=== PATIENT | female | born 1960 | race Caucasian/White ===

== ENCOUNTER → 2017-02-01 | Day surgery (SDC) | payer OTHER ==
[~2017-02-01] MED LIST: HYDR12.58 PO; IV RINGERS,LACTATED 1000ML 1,000 ML IV SCH; PANT40TA5 PO; PROPOFOL 40 ML IV ONE
[2017-02-01 10:31] VITALS: BP 106/61
--- NOTE | 2017-02-02 07:39 | HP ---
ADMIT DATE: 02/01/2017 REFERRING PHYSICIAN: Dr. Lara. HISTORY OF PRESENT ILLNESS: This is a 56-year-old female with past medical history significant for hypertension, longstanding heartburn with breakthrough symptoms. She has had increased reflux despite 40 mg daily of Protonix. She does avoid alcohol, nicotine and caffeine products at this time, no dysphagia, odynophagia or weight loss. No ____ melena and/or hematochezia. In addition, she requests colorectal screening, no family history of colon polyps or colon cancers noted and she has not undergone previous colonoscopy. She is otherwise without additional complaints. PAST MEDICAL HISTORY: Hypertension, gastroesophageal reflux disease. ALLERGIES: None. MEDICATIONS: Include hydrochlorothiazide and pantoprazole. FAMILY HISTORY: History of Crohn's with father and uncle, diabetes with father and uncle, hypertension with mother, DE with an uncle and maternal grandmother. PAST SURGICAL HISTORY: Status post tubal ligation. REVIEW OF SYSTEMS: Per records. SOCIAL HISTORY: She is a social drinker and a former smoker. PHYSICAL EXAMINATION: GENERAL: Reveals a well-nourished, well-developed female. VITAL SIGNS: Temp is 97.9, pulse 72, respiratory rate is 18. HEENT: Reveals a normocephalic, atraumatic head. Pupils and extraocular muscles not tested. Sclerae anicteric. NECK: Supple. LUNGS: Clear. CARDIOVASCULAR: Reveals S1, S2 without S3, S4 or appreciable murmur. ABDOMEN: Reveals a soft abdomen, normal bowel sounds, without appreciable hepatosplenomegaly. EXTREMITIES: Reveals no cyanosis, clubbing or edema. IMPRESSION: 1. Heartburn with breakthrough symptoms. Differential includes achalasia, malignancy, Ortega's, peptic stricture, gastroparesis. Therefore, recommend upper endoscopy with possible biopsies. 2. Colorectal screening, colonoscopy is warranted. Risks and benefits of the procedure have been discussed with the patient. She is willing to proceed at this time. I would like to thank Dr. Lara for allowing us to consult and participate in this patient's care. SHLOMO QUIÑONEZ MD DR: DELBERT/guero JOB#: [id number] / [id number]
--- NOTE | 2017-02-04 13:27 | PATHOLOGY ---
PATHOLOGY REPORT * * * * * * * * FINAL DIAGNOSIS: A. Esophageal biopsies, distal esophagus: - Segments of hyperplastic squamous esophageal mucosa consistent with reflux esophagitis. B. Colon biopsy, transverse colon polyp: - Tubular adenoma. C. Colon biopsy, sigmoid colon polyp: - Hyperplastic polyp. COMMENT: Sections of the distal esophageal biopsy reveal segments of focally tangentially oriented hyperplastic squamous esophageal mucosa. The findings are consistent with reflux esophagitis. There is no evidence of Ortega's change, dysplasia, or malignancy. Sections of the transverse colon biopsy reveal a tubular adenoma. Sections of the sigmoid colon biopsy reveal a hyperplastic polyp. There is no high-grade dysplasia or evidence of malignancy. (JPM:mgr; d/t: 02/04/17) REPORT ELECTRONICALLY SIGNED BY: Souleymane Ford M.D. DATE/TIME: 02/04/2017 13:26 * * * * * * * * GROSS PATHOLOGY: A. Received in formalin labeled "Benita Dinero and distal esophageal biopsies," are 4 segments of harrington soft tissue measuring 1.8 x 0.4 x 0.2 cm in aggregate dimensions and ranging from 0.4 to 0.9 cm in maximum dimension. The specimen is submitted entirely in cassette A1. B. Received in formalin labeled "Benita Dinero and transverse colon polyp," is a segment of harrington soft tissue measuring 0.3 cm in maximum dimension. The specimen is submitted entirely in cassette B1. C. Received in formalin labeled "Benita Dinero and sigmoid colon polyp," is a segment of harrington soft tissue measuring 0.3 cm in maximum dimension. The specimen is submitted entirely in cassette C1. (TTL; 02/01/2017) INITIAL CPT CODE(S): A; 49329 B; 95319 C; 52029 Professional services performed by [facility] at [address] [address] Technical services performed by [facility] at [address] [place] [address], [address], [place] [address]. SPECIMEN(S) RECEIVED: A.Distal esophageal biopsy B.Transverse colon polyp C.Sigmoid colon polyp CLINICAL HISTORY: Reflux, screening PATIENT: BENITA DINERO /AGE: 111/10/1960 (Age: 56) PATIENT #: [id number] ALT CASE #: SPECIMEN COLLECTION DATE: 02/01/2017 SPECIMEN RECEIVED DATE: 02/01/2017 [facility] - [id number] [address] - PHONE: [phone] * * * END OF REPORT * * *
== END | disposition home or self-care (01) ==
LOC: ENDOS 08:51
PROVIDERS: ATTEND Internal Medicine Gastroenterology
DX: Z12.11 Encounter for screening for malignant neoplasm of colon (principal); K64.0 First degree hemorrhoids; D12.3 Benign neoplasm of transverse colon; D12.5 Benign neoplasm of sigmoid colon; K21.0 Gastro-esophageal reflux disease with esophagitis; K29.50 Unspecified chronic gastritis without bleeding; I10 Essential (primary) hypertension; Z72.89 Other problems related to lifestyle; Z72.0 Tobacco use; Z98.51 Tubal ligation status
CPT/HCPCS: 43239; 45380; G0500; J2704; 88305

== ENCOUNTER → 2019-10-30 | Outpatient (CLI) | payer OTHER ==
[2017-02-01 10:31] VITALS: BP 106/61
[~2019-10-30] MED LIST changes: -IV RINGERS,LACTATED 1000ML 1,000 ML IV SCH; -PANT40TA5 PO; +PANT40TA77 PO; -PROPOFOL 40 ML IV ONE
--- NOTE | 2019-10-30 12:24 | RAD ---
MR#: [id number] Date of Study: 10/30/2019 Ordering Physician: FELECIA ACOSTA, Referring Physician: MARCUS CANDELARIA Tech: PRETTY Benson ARRT (R) (N) APPROVED REPORT Test Type: Exercise Stress Nurse/Tech: Matilde MITCHELL Test Indications: CP radiating down left arm Cardiac History: HTN, family hx, See EMR Medications: ASA, See EMR Medical History: See EMR Resting ECG: SB Resting Heart Rate: 50 bpm Resting Blood Pressure: 148/74mmHg Pretest Chest Pain: No chest pain Nurse/Tech Notes Lungs CTA, Heart tones regular Consent: The procedure was explained to the patient in lay terms. Informed consent was witnessed. Tima eout was entered into [facility]. History and Stress Test performed by RT Kenny (R) (N) Stress Symptoms Dizziness, Dyspnea, Fatigue. No chest pain. POST EXERCISE Reason for Termination: Reached target heart rate Target HR: Yes Max HR: 148 bpm 108% of Maximum Predicted HR: 136 bpm Exercise duration: 7:24 min:sec, 3 Stage Exercise capacity: 10.0METs Max Blood Pressure: 174/79mmHg Blood Pressure response to exercise: Normal blood pressure response during stress. Heart Rate response to exercise: WNL Chest Pain: No. Arrhythmia: No. ST Change: No. INTERPRETATION Stress EKG Conclusion: Nondiagnostic EKG due to motion artifact. Peak stress EKG is grossly unremarkable. Imaging Protocol IMAGE PROTOCOL: Rest Tc-99m/stress Tc-99m 1 day Rest: Stress: Viability: Radiopharm.Tc99m JeqowmjseMc16m Sestamibi Ipxt04qDo 33mCi Inj-Img Iehg94dyi. 60min. Rest Admin Site:IV - Right AntecubitalAdministrator:PRETTY Benson, KARINA (R)(N) Stress Admin Site: IV - Right AntecubitalAdministrator: RT Kenny (Jaret)(N) STRESS DATA End Diast. Vol.61.0mlAv. Heart Rate71.0bpm End Syst. Vol.11.0mlCO Index BSA0.0L/min Myocardial Ipxy413.0gEject. Mwugnlbx19.0% Stress Rates Pk. Fill Rate4.06EDV/secLVtime Pk. Fill 253.33msec Pk. Empty Rate5.43ESV/secLVtime Pk. Ykuse627.37msec 1/3 Pk. Fill1.47EDV/sec Stress Scores Regional WT0.00Summed WT2.00 Regional WM0.00Summed WM0.00 The rest and stress images show normal perfusion, normal contraction and thickening. LV Perf. Quant 17 Seg. SSS0.00 17 Seg. SRS0.00 17 Seg. SDS0.00 Stress Defect Extent (% LAD)0.00Rest Defect Extent (% LAD)0.00Rev. Defect Extent (% LAD)0.00 Stress Defect Extent (% LCX) 0.00Rest Defect Extent (% LCX)0.00Rev. Defect Extent (% LCX)0.00 Stress Defect Extent (% RCA)0.00Rest Defect Extent (% RCA)0.00Rev. Defect Extent (% RCA)0.00 Stress Defect Extent (% SARAH)0.00Rest Defect Extent (% SARAH)0.00Rev. Defect Extent (% SARAH)0.00 Other Information Quality:Fair Risk Assessment: Low Risk Conclusion 1. No evidence of EKG changes with stress testing. (limited evaluation due to motion artifact) 2. Normal perfusion at stress/rest. 3. Low risk study. 4. EF > 60%. Signed by : Felecia Acosta, Electronically Approved : 10/30/2019 12:24:01
== END | disposition home or self-care (01) ==
LOC: NM 13:54
PROVIDERS: ATTEND Internal Medicine Cardiovascular Disease
DX: R07.9 Chest pain, unspecified (principal)
CPT/HCPCS: 78452; 93017; A9500

== ENCOUNTER → 2022-01-24 | Outpatient (CLI) | payer OTHER ==
[2017-02-01 10:31] VITALS: BP 106/61
--- NOTE | 2022-01-24 17:15 | KCIC ---
EXAMINATION: XR CHEST 2V CLINICAL HISTORY: UNEXPLAINED COUGH SINCE 2019. EXAM DATE/TIME: 01/24/2022 3:50 PM COMPARISON: None FINDINGS: Lines, Tubes, and Devices: None. Cardiomediastinal Silhouette: Within normal limits. Lungs and Pleura: Questionable mild retrocardiac patchy airspace disease on lateral view. No pleural effusion. Pulmonary vasculature unremarkable. Bones and Soft Tissues: Degenerative changes in the thoracic spine. IMPRESSION: Questionable mild retrocardiac patchy airspace disease, otherwise no evidence of acute cardiopulmonar y abnormality. Electronically signed by: Hugo Martínez DO (01/24/2022 5:12 PM) [id number]
== END ==
LOC: KCIC 15:45
PROVIDERS: ATTEND Family Medicine
DX: R05.9 Cough, unspecified (principal); M47.814 Spondylosis without myelopathy or radiculopathy, thoracic region
CPT/HCPCS: 71046

== ENCOUNTER → 2022-02-12 | Outpatient (CLI) | payer OTHER ==
[2017-02-01 10:31] VITALS: BP 106/61
[~2022-02-12] MED LIST changes: +CONTRAST GIVEN. MC PRN; +IOHEXOL 300 MG/ML 100ML VIAL. IV ONE
--- NOTE | 2022-02-12 10:49 | KCIC ---
PQRS Compliance Statement: One or more of the following individualized dose reduction techniques were utilized for this examinat ion: 1. Automated exposure control 2. Adjustment of the mA and/or kV according to patient size 3. Use of iterative reconstruction technique CT THORAX W 02/12/2022 9:00 AM Indication: Chronic cough. Abnormal chest x-ray. COMPARISON: None available. TECHNIQUE: Multiple axial CT images of the chest were obtained after intravenous demonstration of 95 cc Omnipaque 300. Coronal and sagittal reformats are provided. FINDINGS: Thyroid gland is normal in appearance. There are no pathologically enlarged axillary, mediastinal or hilar lymph nodes. Calcified mediastina l lymph nodes suggest sequela of prior granulomatous exposure. Heart size is within normal limits. Th oracic aorta is normal in course and caliber. There is no significant pericardial effusion. Thoracic esophagus is normal in appearance. Anterior chest wall appears intact. There is a 5 mm solid noncalcified pulmonary nodule in the medial left lower lobe (series 2, image 50 ). Scarring identified in the inferior lingula.. There are no pleural effusions, pulmonary vascular c ongestion or pneumothorax. Lungs are clear without focal airspace consolidation. Central airways are clear. Visualized portions of the upper abdomen are normal in appearance within limitations of a noncontrast examination. No suspicious osseous abnormality. No paraspinal soft tissue mass. IMPRESSION: 1. 5 mm solid noncalcified pulmonary nodule in the medial left lower lobe. Fleischner guidelines for incidentally detected pulmonary nodules suggests no routine follow-up for low risk patients and optio nal CT at 12 months for high risk patients with solid noncalcified pulmonary nodules less than 6 mm i n size. 2. Calcified mediastinal lymph nodes suggest sequela of prior granulomatous exposure. Electronically signed by: Gayle Parks MD (02/12/2022 10:47 AM) [facility]
== END ==
LOC: KCIC CT 08:51
PROVIDERS: ATTEND Family Medicine
DX: R91.1 Solitary pulmonary nodule (principal); I89.8 Other specified noninfective disorders of lymphatic vessels and lymph nodes; R05.9 Cough, unspecified
CPT/HCPCS: 71260; Q9967